=== PATIENT | male | born 1955 | race Caucasian/White ===

== ENCOUNTER 2017-03-12 00:47 | Emergency (ER) | payer BC ==
[2017-03-12] MEDS ORDERED: 0.9 % SODIUM CHLORIDE 1000ML 1,000 ML IV SCH (01:45)
--- NOTE | 2017-03-12 01:55 | Emergency Department Record ---
History of Present Illness - General Chief Complaint: Abdominal Pain Stated Complaint: LEFT SIDE PAIN Time Seen by Provider: 03/12/17 01:43 Source: Patient Mode of Arrival: Ambulatory Limitations: No limitations - History of Present Illness Initial Comments: 62 yo male presents to ED with a CC of left sided back and under arm pain since 14:00 this afternoon. Patient reports pain with breathing and movements, feels as though he may have "torn" a muscle in his flank area. Patient denies fevers , chills, or recent illness. Patient also denies any history of DVT, lower extremity swelling, or chest pain symptoms. 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 Patient denies specific trauma or injury. Patient denies health problems at his baseline and does not take any medications. MD Complaint: Flank pain Onset/Timin -: Hour(s) Radiation: LUQ Migration to: L Flank Severity: Moderate Quality: Sharp, Stabbing Consistency: Intermittent Improves With: Rest Worsens With: Movement, Other (coughing) Associated Symptoms: Denies other symptoms - Related Data Allergies Allergy/AdvReac Type Severity Reaction Status Date / Time No Known Drug Allergies Allergy Verified 03/12/17 00:57 Travel Screening - Travel/Exposure Within Last 30 Days Have you traveled within the last 30 days?: No - Travel/Exposure Within Last Year Have you traveled outside the [place] in the last year?: No - Additonal Travel Details Have you been exposed to anyone with a communicable illness?: No - Travel Symptoms Symptom Screening: None Review of Systems Constitutional: Denies: Chills, Fever, Malaise, Night sweats Eyes: Denies: Eye discharge, Eye pain ENT: Denies: Congestion, Ear pain, Epistaxis Respiratory: Reports: Cough. Denies: Dyspnea Cardiovascular: Denies: Chest pain, Dyspnea on exertion Endocrine: Denies: Fatigue, Heat or cold intolerance Gastrointestinal: Denies: Abdominal pain, Nausea, Vomiting Musculoskeletal: Reports: Back pain. Denies: Arthralgia, Gout, Joint swelling Skin: Denies: Bruising, Change in color Neurological: Denies: Abnormal gait, Confusion, Headache, Seizure Psychiatric: Denies: Anxiety Hematological/Lymphatic: Denies: Anemia, Blood Clots Past Medical History - SOCIAL HISTORY Smoking Status: Former smoker Alcohol Use Comment: beer drinker Drug Use: None - RESPIRATORY Hx Respiratory Disorders: No - CARDIOVASCULAR Hx Cardio Disorders: No - NEURO Hx Neuro Disorders: No - GI Hx GI Disorders: No - Hx Genitourinary Disorders: No - ENDOCRINE Hx Endocrine Disorders: No - MUSCULOSKELETAL Hx Musculoskeletal Disorders: No - PSYCH Hx Psych Problems: No - HEMATOLOGY/ONCOLOGY Hx Hematology/Oncology Disorders: No Family Medical History Any Significant Family History?: No Physical Exam - General General Appearance: Alert, Oriented x3, Cooperative, Moderate distress Limitations: No limitations - Head Head exam: Atraumatic, Normocephalic, Normal inspection Head exam detail: negative: Abrasion, Contusion, Gambino's sign, General tenderness, Hematoma, Laceration - Eye Eye exam: Normal appearance. negative: Conjunctival injection, Periorbital swelling, Periorbital tenderness, Scleral icterus - ENT Ear exam: negative: Auricular hematoma, Auricular trauma Nasal Exam: negative: Active bleeding, Discharge, Dried blood, Foreign body Mouth exam: negative: Drooling, Laceration, Muffled voice, Tongue elevation - Neck Neck exam: Normal inspection. negative: Meningismus, Tenderness - Respiratory Respiratory exam: Normal lung sounds bilaterally. negative: Rales, Respiratory distress, Rhonchi, Stridor - Cardiovascular Cardiovascular Exam: Regular rate, Normal rhythm, Normal heart sounds - GI/Abdominal GI/Abdominal exam: Soft. negative: Rebound, Rigid, Tenderness - Rectal Rectal exam: Deferred - exam: Deferred - Extremities Extremities exam: Normal inspection. negative: Calf tenderness, Pedal edema, Tenderness - Back Back exam: Denies: CVA tenderness (R), CVA tenderness (L) - Neurological Neurological exam: Alert, Normal gait, Oriented X3 - Psychiatric Psychiatric exam: Normal affect, Normal mood - Skin Skin exam: Normal color. negative: Abrasion Type of lesion: negative: abrasion Course Vital Signs 03/12/17 00:51 Temperature 97.8 F Pulse Rate 99 H Respiratory 22 Rate Blood Pressure 132/79 Pulse Ox 98 - Reevaluation(s) Reevaluation #1: 03/12/17 01:55 EKG: NSR 88 Normal axis, normal intervals No acute ST-T wave changes Reevaluation #2: 03/12/17 02:37 Labs reviewed, D-Dimer 2.10, labs are otherwise grossly unremarkable for an acute process. Reevaluation #3: 03/12/17 03:47 CTA Chest: PE left lower lobe with associated with infiltrate Multiple small pulmonary nodules scattered throughout the lung parenchyma [facility] 1-contacted for transfer for further evaluation. Reevaluation #4: 03/12/17 03:53 Case was discussed with Dr. Donovan, will administer Lovenox SC and arrange for transfer to [facility] when bed is available. Reevaluation #5: 03/12/17 05:27 Bed has been obtained at [facility], appears stable for transfer at this time. Medical Decision Making - Lab Data Result diagrams: 03/12/17 01:50 03/12/17 01:50 Disposition Disposition: Transfer Clinical Impression: Pulmonary embolus, left Disposition: Acute Care Hospital Transfer Transfer To: [facility] Reason For Transfer: PE, further evaluation Accepting Physician: Venus Time Discussed w/Accepting Physician: 03:56 Condition: (2) Stable Forms: Patient Portal Access Time of Disposition: 05:28 Quality - Quality Measures Quality Measures: N/A - Blood Pressure Screening Does Patient Have Any of the Following: No Blood Pressure Classification: Pre-Hypertensive BP Reading Systolic Measurement: 124 Diastolic Measurement: 76 Screening for High Blood Pressure: < Pre-Hypertensive BP, F/U Documented > [ [id number]] Pre-Hypertensive Follow-up Interventions: Referral to alternative/primary care provider.
[2017-03-12 02:02] LABS: BASO % 0.4 % (0-6); EOS % 4.1 % (0-6); GRAN % 64.3 % (47-80); HEMATOCRIT 40.8 % (42.0-52.0); LYMPH % 20.9 % (16-45); MEAN CELL VOLUME 87.4 fl (81-97); MEAN CORPUSCULAR HGB CONC 34.3 g/dl (32-36); MEAN PLATELET VOLUME 9.2 fl (7.4-10.4); MONO % 10.3 % (0-9); PLATELET COUNT 194 K/uL (130-400); RED BLOOD COUNT 4.67 M/uL (4.40-5.70); RED CELL DISTRIBUTION WIDTH 12.8 % (11.5-14.5); WHITE BLOOD COUNT W/O DIFF 7.4 K/uL (4.2-12.2)
[2017-03-12 02:12] LABS: BLOOD UREA NITROGEN 10 mg/dL (8-23); CREATININE 0.7 mg/dL (0.7-1.2); EST GLOMERULAR FILTRATION RATE > 60 mL/min
[2017-03-12 02:13] LABS: TOTAL PROTEIN 7.5 g/dL (6.6-8.7)
[2017-03-12 02:15] LABS: GLUCOSE,RANDOM 92 mg/dL (74-109)
[2017-03-12 02:17] LABS: ALB/GLOB RATIO 1.3 (1.1-1.8); ALBUMIN 4.2 g/dL (4.0-5.0); ALKALINE PHOSPHATASE 76 U/L (40-129); ALT/SGPT 19 U/L (<41); AST/SGOT 14 U/L (10.0-50.0)
[2017-03-12] MEDS ORDERED: ENOXAPARIN 80 MG/0.8 ML SYR SQ ONE (03:54)
--- NOTE | 2017-03-12 18:57 | CT ANGIOGRAM REPORT ---
EXAM: CT ANGIOGRAM CHEST CTA w contrast HISTORY: PAIN WITH INSPIRATION, LEFT-SIDED CHEST PAIN BEGINNING ABOUT TWELVE HOURS AGO. ELEVATED D-DIMER. POSSIBLE PE. TECHNIQUE: CTA of the chest performed following the intravenous administration of 77 mL of Omnipaque-350 as the IV contrast. Postprocessing on an independent workstation was performed with multiple 3D MIP series obtained. Preliminary report provided by [facility]. COMPARISON: No prior CT or chest x-ray with which to compare. FINDINGS: There is evidence of PE in the left lower lobe, probably involving multiple segments in the left lower lobe basal region. Elsewhere, no definite PE identified. No thoracic aortic aneurysm or dissection is seen. No pleural or pericardial effusion evident. No pneumothorax evident. Some small peripheral bullae are seen, particularly in the apical regions consistent with paraseptal emphysema. There is an approximately 5.7 mm nodule in the right posterior costophrenic angle, which is indeterminate. A smaller, approximately 3.4 mm nodule in the right lateral costophrenic angle is also indeterminate. Approximately 6.2 mm ground-glass nodule along the minor fissure on the right seen on image #59 of 117. A 3.8 mm indeterminate nodule right middle lobe anteriorly on image #74 of 117. There is also a vague ground-glass nodule, 5 mm in size, in the left upper lobe on image #38 of 117 and a couple tiny nodules in the subpleural location of the lingula inferiorly. There is some atelectasis or infiltrate in the left lower lobe, which could represent a developing pulmonary infarct, given the PE in the left lower lobe. There is some mild mediastinal adenopathy, particularly in the region of the AP window and subcarinal location and there is some bilateral hilar adenopathy, slightly more so on the right. This is nonspecific. IMPRESSION: 1. EVIDENCE OF PE IN THE LEFT LOWER LOBE. SOME INFILTRATE/ATELECTASIS IN THE LEFT LOWER LOBE IS NONSPECIFIC, ALTHOUGH A DEVELOPING PULMONARY INFARCT CANNOT BE EXCLUDED. 2. THERE IS SOME MILD MEDIASTINAL AND BILATERAL HILAR ADENOPATHY, RIGHT GREATER THAN LEFT, NONSPECIFIC. 3. THERE ARE ALSO SOME INDETERMINATE NODULES, PARTICULARLY IN THE RIGHT LUNG MEASURING UP TO ABOUT 6 MM IN SIZE. WITH NO PRIOR CHEST CT TO COMPARE, FOLLOW- UP CHEST CT IN [id number] WOULD PROBABLY BE USEFUL TO REASSESS. 4. FINDINGS CONSISTENT WITH PARASEPTAL EMPHYSEMA, PARTICULARLY IN THE APICAL REGIONS. JOB NUMBER: [id number] [facility]
== END 2017-03-12 05:45 | disposition short-term general hospital (02) ==
LOC: ER 00:47
DX: I26.99 Other pulmonary embolism without acute cor pulmonale (principal); R05 Cough; R10.12 Left upper quadrant pain
CPT/HCPCS: 99285 ×2; 96372; 85025; 80053; 85379; 71275; 93005; 93010; Q9967; J7030